=== PATIENT | female | born 1950 | race American Indian/Alaskan Native ===

== ENCOUNTER 2020-06-14 11:01 | Emergency (ER) | payer MEDICARE ==
--- NOTE | 2020-06-14 11:15 | Event Note ---
ED Screening Note Date of service: 06/14/20 Time: 11:14 ED Screening Note: c/o R facial rash x 1 week, now with right eye swelling denies hx of shingles vaccination This initial assessment/diagnostic orders/clinical plan/treatment(s) is/are subject to change based on patients health status, clinical progression and re- assessment by fellow clinical providers in the ED. Further treatment and workup at subsequent clinical providers discretion. Patient/guardian urged not to elope from the ED as their condition may be serious if not clinically assessed and managed. Initial orders include: possible herpetic lesions to face ACC
--- NOTE | 2020-06-14 13:45 | Emergency Department Report ---
- General Chief complaint: Skin Rash Stated complaint: SKIN RASH Time Seen by Provider: 06/14/20 11:14 Source: patient Mode of arrival: Ambulatory Limitations: No Limitations - History of Present Illness Initial comments: Patient is a 70-year-old female presents emergency room with complaints of a rash to the right side of her face that began a week ago. She states over the last few days she has had right-sided facial swelling. She states it began as a few bumps and blisters but they have not began scabbing over. She denies any itching. She denies any pain in her eye or vision changes. She denies any involvement of her nose, she denies any involvement of her ear, she denies any hearing changes. She has not received a shingles vaccine. She has a past medical history of hypertension and hyperlipidemia. She denies any allergies medications. - Related Data Previous Rx's Medication Instructions Recorded Last Taken Type Valacyclovir HCl [Valacyclovir] 1,000 mg PO TID 7 Days #21 tablet 06/14/20 Unknown Rx predniSONE [Deltasone] 40 mg PO QDAY 5 Days #10 tab 06/14/20 Unknown Rx Allergies Allergy/AdvReac Type Severity Reaction Status Date / Time No Known Allergies Allergy Unverified 06/14/20 11:14 Abscess Boil HPI - HPI Chief Complaint: Skin Rash Stated Complaint: SKIN RASH Time Seen by Provider: 06/14/20 11:14 Home Medications: Previous Rx's Medication Instructions Recorded Last Taken Type Valacyclovir HCl [Valacyclovir] 1,000 mg PO TID 7 Days #21 tablet 06/14/20 Unknown Rx predniSONE [Deltasone] 40 mg PO QDAY 5 Days #10 tab 06/14/20 Unknown Rx Allergies/Adverse Reactions: Allergies Allergy/AdvReac Type Severity Reaction Status Date / Time No Known Allergies Allergy Unverified 06/14/20 11:14 ED Review of Systems ROS: Stated complaint: SKIN RASH Other details as noted in HPI Comment: All other systems reviewed and negative ED Past Medical Hx - Past Medical History Hx Hypertension: Yes Additional medical history: HLD - Surgical History Past Surgical History?: No - Social History Smoking Status: Never Smoker - Medications Home Medications: Home Medications Medication Instructions Recorded Confirmed Last Taken Type Valacyclovir HCl [Valacyclovir] 1,000 mg PO TID 7 Days #21 tablet 06/14/20 Unknown Rx predniSONE [Deltasone] 40 mg PO QDAY 5 Days #10 tab 06/14/20 Unknown Rx ED Physical Exam - General Limitations: No Limitations General appearance: alert, in no apparent distress - Head Head exam: Present: other (scabbed over lesions present to the right forehead and right temporal region, there is mild edema present to the right side of the face and underneath the right eye) - Eye Eye exam: Present: PERRL, EOMI. Absent: conjunctival injection Pupils: Present: normal accommodation - ENT ENT exam: Present: mucous membranes moist, other (no lesions present to the nose) - Respiratory Respiratory exam: Absent: respiratory distress, accessory muscle use - Neurological Exam Neurological exam: Present: alert, oriented X3 - Psychiatric Psychiatric exam: Present: normal affect, normal mood - Skin Skin exam: Present: warm, dry ED Course Vital Signs 06/14/20 06/14/20 06/14/20 11:12 14:06 14:14 Temperature 98.4 F Pulse Rate 71 60 61 Respiratory 18 16 16 Rate Blood Pressure 146/78 145/77 Blood Pressure 145/77 [Left] O2 Sat by Pulse 100 96 97 Oximetry ED Medical Decision Making - Medical Decision Making Patient is a 70-year-old female presents emergency room with complaints of a rash to the right side of her face that began a week ago. She states over the last few days she has had right-sided facial swelling. She states it began as a few bumps and blisters but they have not began scabbing over. She denies any itching. She denies any pain in her eye or vision changes. She denies any involvement of her nose, she denies any involvement of her ear, she denies any hearing changes. She has not received a shingles vaccine. She has a past medical history of hypertension and hyperlipidemia. She denies any allergies medications. Vitals are stable. On exam: scabbed over lesions present to the right forehead and right temporal region, there is mild edema present to the right side of the face and underneath the right eye, no lesions present to the nose. Examination appears most consistent with a healing shingles rash. No sig ns of secondary bacterial infection at this time. Although patient is not having any eye pain or visual changes, would like patient to see voip engineer to rule out any eye involvement, advised that she needed to see an voip engineer within 24 hours, she verbalized understanding. Patient given prescription for prednisone and valacyclovir. Advised patient Please take medication as prescribed. Please follow-up with voip engineer within the next 24 hours, have listed two ophthalmology groups in the area. Please follow-up with your primary care doctor. Return to emergency room immediately for any new or worsening symptoms. Critical care attestation.: If time is entered above; I have spent that time in minutes in the direct care of this critically ill patient, excluding procedure time. ED Disposition Clinical Impression: Shingles outbreak Qualifiers: Herpes zoster complications: unspecified herpes zoster complication Qualified Code(s): B02.8 - Zoster with other complications Disposition: TO HOME OR SELFCARE Is pt being admited?: No Does the pt Need Aspirin: No Condition: Stable Instructions: Herpes Zoster (ED) Additional Instructions: Please take medication as prescribed. Please follow-up with voip engineer within the next 24 hours, have listed two ophthalmology groups in the area. Please follow-up with your primary care doctor. Return to emergency room immediately for any new or worsening symptoms. Prescriptions: predniSONE [Deltasone] 40 mg PO QDAY 5 Days #10 tab Valacyclovir HCl [Valacyclovir] 1,000 mg PO TID 7 Days #21 tablet Referrals: GOLDIE TAPIA MD [Staff Physician] - 24 Hours [facility] [Provider Group] - 24 Hours your, primary care doctor [Other] - 2-3 Days Time of Disposition: 13:48 Print Language: [place]
[2020-06-14 14:14] VITALS: BP 145/77
== END 2020-06-14 14:16 | disposition home or self-care (01) ==
LOC: ED 11:01
DX: B02.8 Zoster with other complications (principal); I10 Essential (primary) hypertension; Z79.899 Other long term (current) drug therapy
CPT/HCPCS: 99281